=== PATIENT | female | born 1970 | race Two or more races ===

== ENCOUNTER 2019-05-14 14:29 | Inpatient (IN) | payer OTHER ==
[~2019-05-14] VITALS: Ht 162.6 cm; Wt 61.0 kg
[2019-05-14] MEDS ORDERED: PETROLATUM,WHITE 28 GM JELLY TP PRN (16:30)
[2019-05-14] MEDS ORDERED: ONDANSETRON HCL 4 MG TABLET PO PRN (16:30)
[2019-05-14] MEDS ORDERED: ALBUTEROL SULFATE HFA 90 MCG/PUFF 8 GM INHALER IH PRN (16:30)
[2019-05-14] MEDS ORDERED: GuaiFENesin/D-METHORPHAN [SUGAR-FREE] 200-20MG/10 ML SYRUP UDCUP PO PRN (16:30)
[2019-05-14] MEDS ORDERED: CloNIDine HCL 0.1 MG TABLET PO PRN (16:30)
[2019-05-14] MEDS ORDERED: MAGNESIUM HYDROXIDE SUSPENSION 30 ML UDCUP PO PRN (16:30)
[2019-05-14] MEDS ORDERED: LOPERAMIDE HCL 2 MG CAPSULE PO PRN (16:30)
[2019-05-14] MEDS ORDERED: MAG HYDROX/AL HYDROX/SIMETH ES 30 ML SUSPENSION UDCUP PO PRN (16:30)
[2019-05-14] MEDS ORDERED: NICOTINE 14 MG/24 HOUR PATCH TD PRN (16:30)
[2019-05-14] MEDS ORDERED: LORazepam 2 MG TABLET PO ONE (16:45)
[2019-05-14] MEDS ORDERED: ACETAMINOPHEN 325 MG TABLET PO PRN (16:45)
[2019-05-14] MEDS ORDERED: 0.9% SODIUM CHLORIDE 10 ML SYRINGE IVP PRN (16:45)
[2019-05-14] MEDS ORDERED: ONDANSETRON HCL 4 MG/2 ML VIAL IVP PRN (16:45)
[2019-05-14 17:52] VITALS: BP 134/86
[2019-05-14] MEDS: ACETAMINOPHEN 325 MG TABLET PO PRN (19:43)
[2019-05-14 19:50] VITALS: BP 106/61
[2019-05-14 23:30] VITALS: BP 101/65
[2019-05-15 04:55] VITALS: BP 98/76
[2019-05-15] MEDS: IBUPROFEN 400 MG TABLET PO PRN ×3 (05:24→20:19)
[2019-05-15 06:02] LABS: BASOPHILS % (AUTO) 0.4 % (0.0-2.0); EOSINOPHILS % (AUTO) 5.5 % (1.0-6.0); HEMATOCRIT 35.1 % (36-46); HEMOGLOBIN 11.7 g/dL (12.0-16.0); LYMPHOCYTES # (AUTO) 2.7 K/uL (1.0-4.8); LYMPHOCYTES % (AUTO) 40.7 % (22.0-44.0); MEAN CORPUSCULAR HEMOGLOBIN 31.5 pg (26.0-34.0); MEAN CORPUSCULAR HGB CONC 33.4 G/dL (31.0-37.0); MEAN CORPUSCULAR VOLUME 94 fL (80-100); MONOCYTES # (AUTO) 0.6 K/uL (0.1-1.0); MONOCYTES % (AUTO) 8.4 % (2.0-9.0); PLATELET COUNT (AUTO) 202 K/uL (150-450); RED BLOOD CELL COUNT(AUTO) 3.73 MIL/uL (4.00-5.20); RED CELL DISTRIBUTION WIDTH 12.5 % (11.5-14.5)
[2019-05-15 06:18] LABS: HEMOGLOBIN A1C 5.2 % (4.5-6.2)
[2019-05-15 06:27] LABS: ANION GAP 6 mmol/L (8-16); CARBON DIOXIDE 30 mmol/L (22-29); CHLORIDE 103 mmol/L (98-107); CREATININE 0.76 mg/dL (0.60-1.30); GLUCOSE,RANDOM 92 mg/dL (70-110); POTASSIUM 3.8 mmol/L (3.5-5.1); SODIUM SERUM 139 mmol/L (136-145); UREA NITROGEN, BLOOD 14 mg/dL (7-18)
[2019-05-15 06:28] LABS: ALANINE AMINOTRANSFERASE 26 U/L (12-78); ALKALINE PHOSPHATASE 104 U/L (46-116); ASPARTATE AMINOTRANSFERASE 18 U/L (15-37); BILIRUBIN,TOTAL 0.4 mg/dL (0.1-1.0); CALCIUM, TOTAL 8.6 mg/dL (8.8-10.5); CHOL/HDL RATIO 2.3 (3.9-5.7); CHOLESTEROL 112 mg/dL (131-200); GLOMERULAR FILTR. RATE CALC > 60 mL/min (>60); HDL CHOLESTEROL 48 mg/dL (40-60); LDL CHOL (CALC.) 54 mg/dL (0-130); THYROID STIMULATING HORMONE 1.61 uIU/mL (0.36-3.74); TOTAL PROTEIN, SERUM 6.2 g/dL (6.4-8.2); TRIGLYCERIDES 49 mg/dL (15-150)
[2019-05-15 08:05] VITALS: BP 107/73
[2019-05-15 11:58] VITALS: BP_SYST 107; BP_SYST 148; BP_DIAS 69; BP_DIAS 89
[2019-05-15] MEDS: GABAPENTIN 300 MG CAPSULE PO SCH ×3 (13:02→20:25)
[2019-05-15 15:56] VITALS: BP 119/55
[2019-05-15] MEDS: DULoxetine HCL 20 MG CAPSULE PO SCH (16:12)
[2019-05-15 20:14] VITALS: BP 107/68
[2019-05-15 23:59] VITALS: BP 98/59
[2019-05-16 04:00] VITALS: BP 118/78
[2019-05-16 07:57] VITALS: BP 101/65
[2019-05-16] MEDS: GABAPENTIN 300 MG CAPSULE PO SCH ×3 (08:17→20:15)
[2019-05-16] MEDS: DULoxetine HCL 20 MG CAPSULE PO SCH (08:17)
[2019-05-16 11:33] VITALS: BP 108/73
[2019-05-16] MEDS: IBUPROFEN 400 MG TABLET PO PRN (11:38)
[2019-05-16 16:23] VITALS: BP 117/77
[2019-05-16 20:11] VITALS: BP 96/68
[2019-05-16 23:45] VITALS: BP 110/77
[2019-05-17 03:59] VITALS: BP 102/72
[2019-05-17] MEDS: IBUPROFEN 400 MG TABLET PO PRN (04:04)
[2019-05-17 08:07] VITALS: BP 113/72
[2019-05-17] MEDS: GABAPENTIN 300 MG CAPSULE PO SCH ×3 (08:24→19:49)
[2019-05-17] MEDS: DOCUSATE SODIUM 100 MG CAPSULE PO PRN ×2 (08:24→19:49)
[2019-05-17] MEDS: DULoxetine HCL 20 MG CAPSULE PO SCH (08:24)
[2019-05-17 11:20] VITALS: BP 108/61
[2019-05-17 15:21] VITALS: BP 104/57
[2019-05-17 19:15] VITALS: BP 114/68
[2019-05-17 23:52] VITALS: BP 99/67
[2019-05-18 04:49] VITALS: BP 108/71
[2019-05-18 07:45] VITALS: BP 96/60
[2019-05-18] MEDS: GABAPENTIN 300 MG CAPSULE PO SCH ×3 (09:45→20:38)
[2019-05-18] MEDS: DULoxetine HCL 20 MG CAPSULE PO SCH (09:45)
[2019-05-18 12:11] VITALS: BP 119/78
[2019-05-18 12:13] VITALS: BP 113/52
[2019-05-18] MEDS: DOCUSATE SODIUM 100 MG CAPSULE PO PRN ×2 (12:35→20:38)
[2019-05-18] MEDS: ACETAMINOPHEN 325 MG TABLET PO PRN (12:36)
[2019-05-18 16:13] VITALS: BP 115/88
[2019-05-18] MEDS: IBUPROFEN 400 MG TABLET PO PRN (19:44)
[2019-05-18 19:52] VITALS: BP 118/82
[2019-05-19] VITALS (7 sets, daily range): BP systolic 90–115; BP diastolic 52–91
[2019-05-19] MEDS: IBUPROFEN 400 MG TABLET PO PRN ×2 (05:17→17:38)
[2019-05-19] MEDS: DULoxetine HCL 20 MG CAPSULE PO SCH (09:30)
[2019-05-19] MEDS: GABAPENTIN 300 MG CAPSULE PO SCH ×3 (09:30→20:12)
[2019-05-20] MEDS: IBUPROFEN 400 MG TABLET PO PRN ×2 (03:50→11:48)
[2019-05-20 04:00] VITALS: BP 107/68
[2019-05-20] MEDS: DULoxetine HCL 20 MG CAPSULE PO SCH (07:52)
[2019-05-20] MEDS: GABAPENTIN 300 MG CAPSULE PO SCH ×2 (07:52→15:25)
[2019-05-20 08:04] VITALS: BP 105/67
[2019-05-20 11:31] VITALS: BP 104/73
[2019-05-20] MEDS ORDERED: DULO20CA30 PO (14:15)
[2019-05-20] MEDS ORDERED: GABA-531 PO (14:16)
[2019-05-20 15:46] VITALS: BP 117/78
== END 2019-05-20 17:25 | DRG 885 ==
LOC: EMS 14:32 → 6S 17:00
PROVIDERS: ADMIT Internal Medicine; ATTEND Internal Medicine
DX: F33.2 Major depressive disorder, recurrent severe without psychotic features (principal); R45.851 Suicidal ideations; D64.9 Anemia, unspecified; F41.9 Anxiety disorder, unspecified; G89.29 Other chronic pain; I10 Essential (primary) hypertension; Z79.899 Other long term (current) drug therapy
CPT/HCPCS: 83036; 84443; 93005

== ENCOUNTER 2019-06-09 12:32 | Inpatient (IN) | payer OTHER ==
[~2019-06-09] VITALS: Ht 157.5 cm; Wt 68.0 kg
[~2019-06-09 12:32] MED LIST: DULO20CA30 PO; GABA-531 PO
[2019-06-09] MEDS ORDERED: ACETAMINOPHEN 325 MG TABLET PO PRN ×2 (13:00→18:45)
[2019-06-09] MEDS ORDERED: 0.9% SODIUM CHLORIDE 10 ML SYRINGE IVP PRN (13:00)
[2019-06-09 13:08] LABS: BASOPHILS % (AUTO) 0.5 % (0.0-2.0); EOSINOPHILS % (AUTO) 5.2 % (1.0-6.0); HEMATOCRIT 35.6 % (36-46); LYMPHOCYTES % (AUTO) 32.9 % (22.0-44.0); MEAN CORPUSCULAR HEMOGLOBIN 31.5 pg (26.0-34.0); MEAN CORPUSCULAR HGB CONC 33.6 G/dL (31.0-37.0); MEAN CORPUSCULAR VOLUME 94 fL (80-100); MONOCYTES # (AUTO) 0.5 K/uL (0.1-1.0); MONOCYTES % (AUTO) 8.2 % (2.0-9.0); NEUTROPHILS # (AUTO) 3.3 K/uL (1.8-7.7); NEUTROPHILS % (AUTO) 53.2 % (40.0-70.0); PLATELET COUNT (AUTO) 276 K/uL (150-450); RED BLOOD CELL COUNT(AUTO) 3.79 MIL/uL (4.00-5.20); RED CELL DISTRIBUTION WIDTH 13.3 % (11.5-14.5)
[2019-06-09 13:13] LABS: AMPHET/METH SCREEN,URINE NEGATIVE (NEGATIVE); BARBITURATE SCREEN, URINE NEGATIVE (NEGATIVE); BENZODIAZEPINES SCREEN,URINE NEGATIVE (NEGATIVE); CANNABINOID SCREEN,URINE NEGATIVE (NEGATIVE); COCAINE SCREEN,URINE NEGATIVE (NEGATIVE); METHADONE SCREEN, URINE NEGATIVE (NEGATIVE); OPIATE SCREEN,URINE NEGATIVE (NEGATIVE); PHENCYCLIDINE SCREEN,URINE NEGATIVE (NEGATIVE)
[2019-06-09 13:16] LABS: ANION GAP 11 mmol/L (8-16); CALCIUM, TOTAL 8.4 mg/dL (8.8-10.5); CARBON DIOXIDE 28 mmol/L (22-29); CHLORIDE 101 mmol/L (98-107); CREATININE 0.67 mg/dL (0.60-1.30); GLOMERULAR FILTR. RATE CALC > 60 mL/min (>60); GLUCOSE,RANDOM 70 mg/dL (70-110); POTASSIUM 4.1 mmol/L (3.5-5.1); SODIUM SERUM 140 mmol/L (136-145); UREA NITROGEN, BLOOD 15 mg/dL (7-18)
[2019-06-09 13:56] VITALS: BP 135/93
[2019-06-09] MEDS ORDERED: INFLUENZA VIRUS VACCINE QVS 2019-20 (3YR+)/PF 60 MCG/0.5 ML SYRINGE IM ONE (15:30)
[2019-06-09] MEDS ORDERED: PNEUMOCOCCAL VACCINE POLYVALENT 0.5 ML VIAL [PPSV23] IM ONE (15:30)
[2019-06-09 16:02] VITALS: BP 113/78
[2019-06-09] MEDS ORDERED: MAGNESIUM HYDROXIDE SUSPENSION 30 ML UDCUP PO PRN (18:45)
[2019-06-09] MEDS ORDERED: ZOLPIDEM TARTRATE 5 MG TABLET PO PRN (18:45)
[2019-06-09] MEDS ORDERED: ONDANSETRON HCL 4 MG/2 ML VIAL IVP PRN (18:45)
[2019-06-09] MEDS ORDERED: IPRATROPIUM BROMIDE 0.5 MG/2.5 ML NEB SOLUTION NEB PRN (18:45)
[2019-06-09] MEDS ORDERED: BISACODYL 10 MG RECTAL RECTAL SUPPOSITORY PR PRN (18:45)
[2019-06-09] MEDS ORDERED: ALBUTEROL SULFATE 2.5 MG/0.5 ML NEB SOLUTION NEB PRN (18:45)
[2019-06-09] MEDS: IBUPROFEN 800 MG TABLET PO PRN (20:10)
[2019-06-09] MEDS: DOCUSATE SODIUM 100 MG CAPSULE PO SCH (20:10)
[2019-06-09 20:25] VITALS: BP 129/71
[2019-06-09 23:50] VITALS: BP 120/78
[2019-06-10] MEDS: HEPARIN SODIUM,PORCINE 5,000 UNITS/ML VIAL SQ SCH ×4 (00:31→23:56)
[2019-06-10 05:04] VITALS: BP 113/78
[2019-06-10 07:31] VITALS: BP 118/69
[2019-06-10] MEDS: GABAPENTIN 300 MG CAPSULE PO SCH ×3 (08:24→20:03)
[2019-06-10] MEDS: DOCUSATE SODIUM 100 MG CAPSULE PO SCH ×2 (08:24→20:03)
[2019-06-10] MEDS: DULoxetine HCL 20 MG CAPSULE PO SCH (10:05)
[2019-06-10 11:28] VITALS: BP 108/65
[2019-06-10] MEDS: IBUPROFEN 800 MG TABLET PO PRN (15:07)
[2019-06-10 15:51] VITALS: BP 107/68
[2019-06-10 19:32] VITALS: BP 100/57
[2019-06-10 23:58] VITALS: BP 109/71
[2019-06-11 06:40] VITALS: BP 90/54
[2019-06-11] MEDS: HEPARIN SODIUM,PORCINE 5,000 UNITS/ML VIAL SQ SCH ×2 (08:09→16:26)
[2019-06-11] MEDS: DULoxetine HCL 20 MG CAPSULE PO SCH (08:09)
[2019-06-11] MEDS: GABAPENTIN 300 MG CAPSULE PO SCH ×3 (08:10→19:49)
[2019-06-11] MEDS: DOCUSATE SODIUM 100 MG CAPSULE PO SCH ×2 (08:10→19:49)
[2019-06-11 11:05] VITALS: BP 94/56
[2019-06-11 15:43] VITALS: BP 108/58
[2019-06-11 20:09] VITALS: BP 115/66
[2019-06-11 22:47] VITALS: BP 99/58
[2019-06-12] MEDS: HEPARIN SODIUM,PORCINE 5,000 UNITS/ML VIAL SQ SCH ×3 (00:07→16:30)
[2019-06-12 04:00] VITALS: BP 109/62
[2019-06-12 07:30] VITALS: BP 11/69
[2019-06-12] MEDS: DOCUSATE SODIUM 100 MG CAPSULE PO SCH (08:30)
[2019-06-12] MEDS: GABAPENTIN 300 MG CAPSULE PO SCH ×2 (08:30→16:30)
[2019-06-12] MEDS: DULoxetine HCL 20 MG CAPSULE PO SCH (08:30)
[2019-06-12 11:58] VITALS: BP 107/58
[2019-06-12] MEDS ORDERED: DULO20CA30 PO (15:15)
[2019-06-12 16:09] VITALS: BP 107/69
== END 2019-06-12 17:05 | DRG 885 ==
LOC: EMS 12:34 → 6S 13:19
PROVIDERS: ADMIT Hospitalist; ATTEND Hospitalist
DX: F33.2 Major depressive disorder, recurrent severe without psychotic features (principal); R45.851 Suicidal ideations; G89.29 Other chronic pain; F41.9 Anxiety disorder, unspecified; M19.90 Unspecified osteoarthritis, unspecified site; M54.9 Dorsalgia, unspecified; Z91.5 Personal history of self-harm; Z28.21 Immunization not carried out because of patient refusal; Z88.5 Allergy status to narcotic agent; Z79.899 Other long term (current) drug therapy
CPT/HCPCS: G0480; J1644